=== PATIENT | female | born 1990 | race Caucasian/White ===

== ENCOUNTER 2016-07-14 12:43 | Emergency (ER) | payer MEDICAID, OTHER ==
--- OUTSIDE RECORDS SUMMARY | 2016-07-14 14:42 | XMS REPORT | Summary of Care ---
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) (Confirmed) 01/27/07 - 10/13/07 Resolved Allergies, Adverse Reactions, Alerts Substance Reaction Severity Status penicillin Swelling/throat swells Active Medications Depo-Provera mg, IM, qWeek, 0 Refill(s), Start Date: 11/05/15 9:52:00 CDT Start Date: 11/05/15 Stop Date: 01/02/16 Status: DiscontinuedDepo-Provera (office) 150 mg, IM, ONETIME, First Dose: 04/10/16 12:00:00 PRICING DIRECTOR, Stop Date: 04/10/16 12: 00:00 PRICING DIRECTOR, Diagnosis: Contraception management Start Date: 04/10/16 Stop Date: 04/10/16 Status: CompletedDepo-Provera Contraceptive 150 mg, IM, ONETIME, 0 Refill(s), Start Date: 11/05/15 9:58:00 CDT Start Date: 11/05/15 Stop Date: 01/02/16 Status: DiscontinuedDepo-Provera Contraceptive 150 mg/mL intramuscular suspension 150 mg, IM, ONETIME, # 1 mL, 2 Refill(s), Start Date: 01/02/16 9:56:00 PRICING DIRECTOR, Pharmacy: [facility] Start Date: 01/02/16 Status: OrderedHYDROcodone-acetaminophen 5mg-325mg oral tablet 0 Refill(s), Start Date: 01/02/16 9:40:00 PRICING DIRECTOR Start Date: 01/02/16 Status: Orderednicotine 14 mg/24 hr transdermal film, extended release 1 patch(es), Topical, Daily, # 30 patch(es), 0 Refill(s), Start Date: 01/02/16 9 :52:00 PRICING DIRECTOR, Pharmacy: [facility] Start Date: 01/02/16 Stop Date: 02/01/16 Status: Completednicotine 7 mg/24 hr transdermal film, extended release 1 patch(es), Topical, Daily, X 14 days, # 14 patch(es), 0 Refill(s), Start Date : 01/02/16 9:54:00 PRICING DIRECTOR, Pharmacy: [facility] Start Date: 01/02/16 Stop Date: 01/16/16 Status: Completed Results No data available for this section Immunizations No data available for this section Procedures Procedure Date Related Diagnosis Body Site LEE 10/2015 section 2007 Social History No data available for this section Assessment and Plan No data available for this section
[2016-07-14] MEDS ORDERED: ALBUTEROL SULFATE 2.5 MG/0.5 ML VIAL.NEB IH ONE ×3 (14:45→15:10)
[2016-07-14] MEDS ORDERED: predniSONE 20 MG TABLET PO ONE ×4 (14:45→15:06)
[2016-07-14] MEDS ORDERED: LORATADINE 10 MG TABLET PO ONE (14:45)
--- NOTE | 2016-07-14 14:45 | ERNOTE ---
Date of Service: 07/14/16 Time Seen by Provider: 07/14/16 14:29 Stated Complaint: SORE THROAT/COUGH Presenting Symptoms:: cough Source: patient Exam Limitations: no limitations Immunizations: IMMUNIZATION HX Immunizations Up to Date No History of Influenza Vaccine No Hx Pneumococcal Vaccination No Allergies/Adverse Reactions: Allergies Penicillins Allergy (Verified 07/14/16 12:55) Home Medications: HOME MEDICATIONS Albuterol Sulfate [Proair Hfa] 2 puff IH Q4H PRN #1 inhaler 07/14/16 [Last Taken Unknown] Levofloxacin [Levaquin] 500 mg PO DAILY #10 tablet 07/14/16 [Last Taken Unknown] predniSONE [Prednisone] 3 tab PO BID #84 tab 07/14/16 [Last Taken Unknown] - History of Present Ilness Narrative: Cough for 3 days, steadily worsening. Lived in the [facility] till four years ago when she moved to [place], at which point she developed asthma, exclusive to the warm months. Last fall,she moved to this area. Yesterday she moved to this area. She also smokes and has done so for at least 10 year. She is taking no asthma meds. She has had no fever. Cough is not productive. She has not had any heartburn. Timing: getting worse Severity: moderate Frequency/Possible Cause: Reports: frequent episodes, allergen exposure, smoke exposure Modifying Factors - Improves: Reports: albuterol Modifying Factors - Worsens: Reports: activity, coughing Associated Symptoms: Reports: cough, shortness of breath, wheezing, nasal congestion, nasal drainage, sore throat Prior Treatment: Denies: currently on antibiotics Review of Systems - Review of Systems Constitutional: Present: See HPI EYE: Present: no symptoms reported ENT: Present: nose congestion, nasal drainage Respiratory: Present: See HPI Cardiology: Present: no symptoms reported Gastrointestinal/Abdominal: Present: no symptoms reported Genitourinary: Present: no symptoms reported Musculoskeletal: Present: no symptoms reported Skin: Present: no symptoms reported Neurological: Present: no symptoms reported Endocrine: Present: no symptoms reported Hematologic/Lymphatic: Present: no symptoms reported Psych: Present: no symptoms reported All Other Systems: All systems neg except as marked - Patient's Past Medical History Patient History - Medical: No pertinent hx Patient History - Cardiac/Respiratory: Asthma Patient History - Cancer: No Hx of Cancer Patient History - Surgical Procedures: Patient History - Other: None - Social History Living Situations: home Abuse History: No History of abuse Psych History: No pertinent hx Smoking Status: Current every day smoker Have you smoked in the past 12 months: Yes Do you dip or chew tobacco: No Alcohol Use: rarely Drug Use: none - Immunizations Immunizations Up to Date: No Hx Pneumococcal Vaccination: No History of Influenza Vaccine: No Physical Exam - Physical Exam General Appearance: Present: wd/wn, alert, mild distress Eye Exam: Normal inspection: bilateral, PERRL: bilateral, EOMI: bilateral Ears, Nose, Throat: Present: normal ENT inspection, nasal congestion, pharyngeal erythema Neck: Present: normal inspection Respiratory: Present: respiratory distress, accessory muscle use, rhonchi, wheezing Cardiovascular/Chest: Present: regular rate, rhythm, no murmur, tachycardia Gastrointestinal/Abdominal: Present: normal bowel sounds, nontender, nondistended, soft, no organomegaly Back Exam: Present: normal inspection, normal range of motion, no vertebral tenderness Extremity Exam: Present: normal inspection, no edema Neurological Exam: Present: alert, oriented Skin Exam: Present: normal color, warm/dry ED Progress - Results and Orders Patient's Lab Results:: I have reviewed the patient's lab results. - Vital Signs Patient's Vital Signs:: I have reviewed the patient's vital signs. Vital Signs: Vital Signs 07/14/16 12:53 Temperature 37.1 C Pulse Rate 119 H Respiratory 18 Rate Blood Pressure 127/88 O2 Sat by Pulse 98 Oximetry - Progress/Reassessment Chief Complaint: Upper Respiratory Symptoms Progress:: Improved Departure - Departure Clinical Impression: Tobacco abuse Acute asthma exacerbation Qualifiers: Asthma severity: unspecified severity Qualified Code(s): J45.901 - Unspecified asthma with (acute) exacerbation Disposition: Home self-care Condition: Good Instructions: Asthma, Acute Bronchospasm, Smoking Cessation, Tips for Success Additional Instructions: Follow up in 2 weeks with doctor of your choice. Prescriptions: Albuterol Sulfate [Proair Hfa] 2 puff IH Q4H PRN #1 inhaler PRN Reason: Wheezing Levofloxacin [Levaquin] 500 mg PO DAILY #10 tablet predniSONE [Prednisone] 3 tab PO BID #84 tab
[2016-07-14] MEDS ORDERED: LORATADINE 10 MG TABLET ONE (14:56)
[2016-07-14] MEDS ORDERED: predniSONE 20 MG TABLET ONE (15:06)
[2016-07-14 15:31] VITALS: BP 127/86
== END 2016-07-14 16:15 | disposition home or self-care (01) ==
LOC: ER 12:43
DX: J45.901 Unspecified asthma with (acute) exacerbation (principal); Z72.0 Tobacco use

== ENCOUNTER 2016-08-11 10:15 | Emergency (ER) | payer OTHER ==
[2016-08-11 10:27] VITALS: BP 115/75
[2016-08-11] MEDS ORDERED: ALBUTEROL SULFATE/IPRATROPIUM 3 ML NEBU IH ONE ×2 (10:36→10:40)
--- NOTE | 2016-08-11 10:51 | ERNOTE ---
Date of Service: 08/11/16 Time Seen by Provider: 08/11/16 10:35 Stated Complaint: BRONCHITIS Presenting Symptoms:: cough, other - dyspnea Source: patient Exam Limitations: no limitations Immunizations: IMMUNIZATION HX Immunizations Up to Date No History of Influenza Vaccine No Hx Pneumococcal Vaccination No Allergies/Adverse Reactions: Allergies Penicillins Allergy (Verified 08/11/16 10:27) Home Medications: HOME MEDICATIONS Albuterol Sulfate [Proair Hfa] 2 puff IH Q4H PRN #1 inhaler 07/14/16 [Last Taken Unknown] Albuterol Sulfate [Ventolin Hfa] 2 puff IH Q4H PRN #1 inhaler 08/11/16 [Last Taken Unknown] Beclomethasone Dipropionate [Qvar] 1 puff IH BID #1 aer.w.adap 08/11/16 [Last Taken Unknown] Doxycycline Monohydrate 100 mg PO BID #20 tablet 08/11/16 [Last Taken Unknown] predniSONE [Prednisone] 3 tab PO DAILY #9 tab 08/11/16 [Last Taken Unknown] - History of Present Ilness Narrative: Pt. comes in with c/o cough, chest congestion, and dypnea for a month. Pt. has been seen here on the for the same symptoms and was treated with levoquin and a steroid burst which improved things for a short period of time but pt. did not follow up with her PCP and she worsened steadily after she was done with her medications. Review of Systems - Review of Systems Constitutional: Present: no symptoms reported. Absent: recent illness, fever, chills, weakness, fatigue EYE: Present: no symptoms reported ENT: Present: no symptoms reported Respiratory: Present: shortness of breath, cough, orthopnea, wheezing, other - chest tenderness Cardiology: Present: no symptoms reported. Absent: chest pain, palpitations, edema Gastrointestinal/Abdominal: Present: no symptoms reported. Absent: nausea, vomiting, diarrhea Musculoskeletal: Present: no symptoms reported. Absent: back pain, joint pain Skin: Present: no symptoms reported. Absent: rash, change in color Neurological: Present: no symptoms reported. Absent: headache, dizziness/light- headedness, numbness, tingling All Other Systems: All systems neg except as marked - Patient's Past Medical History Patient History - Medical: No pertinent hx Patient History - Cardiac/Respiratory: Asthma Patient History - Cancer: No Hx of Cancer Patient History - Surgical Procedures: Patient History - Other: None - Social History Living Situations: home Abuse History: No History of abuse Psych History: No pertinent hx Alcohol Use: rarely Drug Use: none - Immunizations Immunizations Up to Date: No Hx Pneumococcal Vaccination: No History of Influenza Vaccine: No Physical Exam - Physical Exam General Appearance: Present: wd/wn, alert, no apparent distress Eye Exam: Normal inspection: bilateral, PERRL: bilateral, EOMI: bilateral Ears, Nose, Throat: Present: normal ENT inspection, normal pharynx Neck: Present: normal inspection, nontender. Absent: lymphadenopathy (R), lymphadenopathy (L) Respiratory: Present: chest tenderness - B chest wall and mediastinum, respiratory distress, accessory muscle use, decreased breath sounds, wheezing - throughout Cardiovascular/Chest: Present: regular rate, rhythm, no murmur, normal peripheral pulses Back Exam: Present: normal inspection Extremity Exam: Present: normal inspection Neurological Exam: Present: alert, oriented, normal mood/affect, no motor/ sensory deficits Skin Exam: Present: normal color, warm/dry. Absent: pallor, skin rash ED Progress - Results and Orders Patient's Lab Results:: I have reviewed the patient's lab results. - Vital Signs Patient's Vital Signs:: I have reviewed the patient's vital signs. Vital Signs: Vital Signs 08/11/16 08/11/16 10:24 10:40 Temperature 36.4 C L Pulse Rate 85 88 Respiratory 12 18 Rate Blood Pressure 115/75 O2 Sat by Pulse 93 97 Oximetry - X-Ray X-Ray #1 X-Ray: chest Interpretation: Reviewed by me X-ray Comments: bronchial cuffing - Progress/Reassessment Chief Complaint: Upper Respiratory Symptoms Departure - Departure Clinical Impression: Acute asthma exacerbation Qualifiers: Asthma severity: moderate persistent Qualified Code(s): J45.41 - Moderate persistent asthma with (acute) exacerbation Disposition: Home self-care Condition: Good Instructions: Asthma Attack Prevention, Bronchospasm, Adult, [id number], Asthma, Adult, [id number] Additional Instructions: Stop smoking, take qvar twice a day and then take albuterol as needed every 2-4 hours. Please follow up with primary provider in 2-3 days. Prescriptions: Albuterol Sulfate [Ventolin Hfa] 2 puff IH Q4H PRN #1 inhaler PRN Reason: Shortness Of Breath Beclomethasone Dipropionate [Qvar] 1 puff IH BID #1 aer.w.adap Doxycycline Monohydrate 100 mg PO BID #20 tablet predniSONE [Prednisone] 3 tab PO DAILY #9 tab
[2016-08-11 10:57] LABS: Hemoglobin 15.5 gm/dL (12.5-16.0); Mean Cell Volume 85.1 fl (78-100); Mean Corpuscular Hgb Conc 35.2 g/dl (32-36); Mean Platelet Volume 8.9 fl (6.0-9.5); Neutrophil # 4.8 K/mm3 (1.3-6.0); Neutrophil % 54.4 % (42-75.0); Platelet Count 270 K/mm3 (150-450); Red Blood Count 5.17 M/mm3 (4.2-5.4); Red Cell Distribution Width 12.3 % (11.5-14.0); White Blood Count 8.8 K/mm3 (4.0-10.5)
[2016-08-11 11:13] LABS: Albumin * 3.6 gm/dl (3.4-5.0); Anion Gap 12.8 mmol/L (6.8-13.8); BUN/Creatinine Ratio 12.6 (9.0-21.6); Bilirubin, Total 0.3 mg/dL (0.0-1.1); Ca. Corrected For Albumin 8.9 mg/dL (8.4-10.2); Calcium * 8.9 mg/dL (7.9-10.9); Potassium 3.8 mmol/L (3.4-4.6); Total Protein 7.1 gm/dL (6.2-8.2)
== END 2016-08-11 11:28 | disposition home or self-care (01) ==
LOC: ER 10:15
DX: J45.41 Moderate persistent asthma with (acute) exacerbation (principal)

== ENCOUNTER 2016-12-31 23:28 | Emergency (ER) | payer OTHER ==
[2017-01-01] VITALS: BP 116/81
--- NOTE | 2017-01-01 00:21 | ERNOTE ---
Medical Problem HPI - General Chief Complaint: Laceration Time Seen by Provider: 01/01/17 00:17 Source: patient Exam Limitations: no limitations - Immun/Allergies/Home Medications Immunizations: IMMUNIZATION HX Immunizations Up to Date Yes History of Influenza Vaccine No Hx Pneumococcal Vaccination No Allergies/Adverse Reactions: Allergies Penicillins Allergy (Verified 01/01/17 00:00) Home Medications: HOME MEDICATIONS NK [No Home Medication] 01/01/17 [Last Taken Unknown] - History of Present History Narrative: climbed a fence and then lost her balance on the other side and fell hitting her knee and sustained a laceration Timing: constant Severity: mild Review of Systems - Review of Systems Constitutional: Present: no symptoms reported EYE: Present: no symptoms reported ENT: Present: no symptoms reported Respiratory: Present: no symptoms reported Cardiology: Present: no symptoms reported Gastrointestinal/Abdominal: Present: no symptoms reported Genitourinary: Present: no symptoms reported Musculoskeletal: Absent: joint pain, joint swelling Skin: Present: See HPI Neurological: Absent: numbness, tingling Endocrine: Present: no symptoms reported Hematologic/Lymphatic: Present: no symptoms reported Psych: Present: no symptoms reported - Patient's Past Medical History Patient History - Medical: No pertinent hx Patient History - Cardiac/Respiratory: Asthma Patient History - Cancer: No Hx of Cancer Patient History - Surgical Procedures: Patient History - Other: None LMP (females 10-50): other - Social History Living Situations: home Abuse History: No History of abuse Psych History: Hx of Anxiety, Hx of Depression Smoking Status: Current every day smoker Alcohol Use: occasionally Drug Use: none - Immunizations Immunizations Up to Date: Yes Hx Pneumococcal Vaccination: No History of Influenza Vaccine: No Physical Exam - Physical Exam General Appearance: Present: wd/wn, alert, mild distress, anxious Head Exam: Present: normal inspection, no evidence of injury Eye Exam: Normal inspection: bilateral, PERRL: bilateral Respiratory: Present: no respiratory distress, no accessory muscle use Extremity Exam: Present: normal inspection, decreased range of motion - right knee. Absent: bony tenderness, joint redness, joint swelling Neurological Exam: Present: alert, oriented, no motor/sensory deficits Skin Exam: Present: other - "L" shaped laceration over right patella 1.5 cm total Lymphatic Exam: Present: no adenopathy ED Progress - Vital Signs Vital Signs: Vital Signs 12/31/16 23:55 Temperature 36.9 C Pulse Rate 94 Respiratory 18 Rate Blood Pressure 116/81 O2 Sat by Pulse 96 Oximetry - Progress/Reassessment Chief Complaint: Laceration Procedures Right Knee Anesthesia: 1% Lidocaine, Local I & D Prep: betadine prep, sterile drapes applied Length of Repair/Wound (cm): 1.5 Wound's Depth/Shape: superficial, flap Wound Explored: clean, no foreign body Distal NVT: neuro/vasc intact, no tendon injury Wound Repaired With: sutures Suture Size/Type: 4-0, nylon Number of Sutures: 3 Layer Closure: Simple Estimated blood loss (ml): 10 Complications: Pt bogdan procedure well Departure Clinical Impression: Laceration - Departure Disposition: Home Follow Up Needed Condition: Good Instructions: Laceration Care, Adult, [id number] Additional Instructions: have sutures taken out in 7-10 days. Be careful not to bend your knee much for the next 3-4 days. Referrals: Ana Maria Samuels FNP [Primary Care Provider] -
[2017-01-01] MEDS ORDERED: LIDOCAINE HCL 20 ML VIAL ONE (01:00)
[2017-01-01] MEDS ORDERED: DIPHTH,PERTUSS(ACELL),TET VAC 0.5 ML VIAL IM ONE ×2 (01:34→01:35)
== END 2017-01-01 01:43 | disposition home or self-care (01) ==
LOC: ER 23:28
PROC: 0HQKXZZ Repair Right Lower Leg Skin, External Approach (ICD-10-PCS; principal; 2016-12-31)
DX: S81.011A Laceration without foreign body, right knee, initial encounter (principal); W17.89XA Other fall from one level to another, initial encounter; Y93.39 Activity, other involving climbing, rappelling and jumping off; W22.8XXA Striking against or struck by other objects, initial encounter; Z23 Encounter for immunization